=== PATIENT | female | born 1995 | race Caucasian/White ===

== ENCOUNTER 2019-01-01 03:00 | Inpatient (IN) | payer MEDICAID ==
[~2019-01-01] VITALS: Ht 154.9 cm; Wt 57.1 kg
[2019-01-01 03:30] VITALS: Ht 154.9 cm; Wt 57.1 kg
[2019-01-01] MEDS ORDERED: BUTORPHANOL 2 MG INJ IV PRN (03:30)
[2019-01-01] MEDS ORDERED: MISOPROSTOL 200 MCG TAB PR PRN ×2 (03:30→10:30)
[2019-01-01] MEDS ORDERED: METHYLERGONOVINE 0.2 MG INJ IM PRN ×2 (03:30→10:30)
[2019-01-01] MEDS ORDERED: OXYTOCIN 30 UNITS/LR 500 ML IV PRN ×2 (03:30→10:30)
[2019-01-01] MEDS ORDERED: CARBOPROST 250 MCG INJ IM PRN ×2 (03:30→10:30)
[2019-01-01] MEDS ORDERED: OXYTOCIN 30 UNITS/LR 500 ML IV SCH ×3 (03:30→10:07)
[2019-01-01] MEDS ORDERED: LIDOCAINE 1% (MPF) 30 ML INJ INJ PRN (03:30)
[2019-01-01 03:31] VITALS: BP 119/81; PULSE 62; RESP 18
[2019-01-01] MEDS: LACTATED RINGER'S 1,000 ML IV SCH ×2 (03:42→04:56)
[2019-01-01] MEDS ORDERED: FENTAnyl 2MCG/ML-ROPIV 0.2% 100 ML ONE (04:41)
--- NOTE | 2019-01-01 04:54 | PREAC ---
Date/Time of Note Date/Time of Note DATE: 01/01/19 TIME: 04:52 Anesthesia Eval and Record Evaluation Time Pre-Procedure Interview DATE: 01/01/19 TIME: 04:15 Age 23 Sex female NPO: 8 hrs Preoperative diagnosis iup @ 38.5 wks., , labor Planned procedure coreen Past Medical History Past Medical History: Includes Cardio: Other (h/o CHD, s/p repair) : : (1), Para: (0), Gestational age: (38.5 wks.) Surgery & Anesthesia Issues No known issue Meds Anticoagulation: No Beta Ely within 24 hr: No Reason Beta Ely not given: Pt. not on B-Ely Current Medications Lactated Ringer's 1,000 ml @ 125 mls/hr Q8H IV Last administered on 01/01/19at 03:42; Admin Dose 125 MLS/HR; Start 01/01/19 at 03:28 Butorphanol Tartrate (Stadol) 2 mg Q2H PRN IV .PAIN SCALE 6-10; Start 01/01/19 at 03:30 Lidocaine (Xylocaine 1% (Mpf)) 30 ml ONCE PRN INJ .EPISIOTOMY; Start 01/01/19 at 03:30 Oxytocin/Lactated Ringer's 500 ml @ 500 mls/hr ONCE POST IV ; Start 01/01/19 at 03:30 Oxytocin/Lactated Ringer's 500 ml @ 125 mls/hr POST IV ; Start 01/01/19 at 03:30 Oxytocin/Lactated Ringer's 500 ml @ 0 mls/hr ONCE PRN IV .VAGINAL BLEEDING; Start 01/01/19 at 03:30 Methylergonovine Maleate (Methergine) 0.2 mg ONCE PRN IM .VAGINAL BLEEDING; Start 01/01/19 at 03:30 Carboprost Tromethamine (Hemabate) 250 mcg ONCE PRN IM .VAGINAL BLEEDING; Start 01/01/19 at 03:30 Misoprostol (Cytotec) 1,000 mcg ONCE PRN VT .VAGINAL BLEEDING; Start 01/01/19 at 03:30 Meds reviewed: Yes Allergies Coded Allergies: No Known Allergy (Unverified , 01/01/19) Allergies Reviewed: Yes Labs/Studies Labs Reviewed: Reviewed by anesthesiologist Result Diagram: 01/01/19 0335 Laboratory Tests 01/01/19 03:35 Blood Bank Test 01/01/19 03:35 Antibody Screen NEGATIVE Blood Type O POSITIVE Rh Immune Globulin Candidate NO test: Positive Studies: ECG (n/a), CXR (n/a) Pre-procedure Exam Last vitals Vital Signs Date Temp Pulse Resp B/P (MAP) Pulse Ox O2 O2 Flow FiO2 Time Delivery Rate 01/01/19 98.3 62 18 119/81 Room Air 03:31 (94) Airway: Adequate mouth opening, Adequate thyromental dist Mallampati: Mallampati II Teeth: Normal Lung: Normal Heart: Normal ASA Physical Status ASA physical status: 2 Emergency: E Planned Anesthetic Neuraxial: Epidural Planned Pain Management Epidural, Local by surgeon Pre-operative Attestations Prior to commencing anesthesia and surgery, the patient was re-evaluated, there was verification of: *The patient's identity *The results of appropriate recent lab work and preoperative vital signs *The above evaluation not changing prior to induction *Anesthetic plan, risk benefits, alternative and complications discussed with patient/family; questions answered; patient/family understands, accepts and wishes to proceed. [employer] used EVETTE SILVER MD January 01, 2019 04:54
[2019-01-01] MEDS ORDERED: ONDANSETRON 4 MG INJ IV PRN ×4 (05:00→10:30)
[2019-01-01] MEDS ORDERED: FENTAnyl 2MCG/ML-ROPIV 0.2% 100 ML BAG EPI SCH (05:00)
[2019-01-01] MEDS ORDERED: NALOXONE (0.4 MG/ML) INJ IV PRN (05:00)
--- NOTE | 2019-01-01 10:06 | HP ---
Date/Time of Note Date/Time of Note DATE: 01/01/19 TIME: 10:01 OB - History Hx of Present Free Text/Dictation 23-year-old 1 para 0 at 38 weeks and 3 days of gestation with estimated date of delivery January 08, 2019 She presents in active labor with regular contractions Patient reports leaking fluid since 2 AM Patient reports positive movement and denies vaginal bleeding GBS status is negative Estimated Due Date: Jan 08, 2019 : 1 Para: 0 Care: Good Care Past Family/Social History * Past Medical, Surgical, Family and Obstetric Histories reviewed from chart. OB Admission Exam Vital Signs Vital Signs Vital Signs Date Temp Pulse Resp B/P (MAP) Pulse Ox O2 O2 Flow FiO2 Time Delivery Rate 01/01/19 98.3 62 18 119/81 Room Air 03:31 (94) Physical Exam HEENT: WNL Heart: Rhythm Normal Lungs: Clear, Equal Abdomen: WNL Extremities: Normal Reflexes: Normal Cervical Dilatation: 4cm Effacement: 100% Station: -2 Membranes: Ruptured Amniotic Fluid: Clear Heart Rate: 140's Accelerations: Accelerations Present Decelerations: No Decelerations Varibility: Moderate Contractions on Admission: < 5 Minutes Apart Intensity: Moderate Last 72 hours Lab Results CBC & BMP 01/01/19 03:35 OB Assessment/Plan Reason for admission: active labor Plan: Expectant Management Other plan: Admit to labor and delivery Pain meds as needed Copies To: CC: VINCENT SCHULTE MD ; ERIK RIVAS MD January 01, 2019 10:06
[2019-01-01] MEDS: LACTATED RINGER'S 1,000 ML IV* SCH ×2 (10:07→18:07)
--- NOTE | 2019-01-01 10:15 | LDN ---
Date/Time of Note Date/Time of Note DATE: 01/01/19 TIME: 10:13 Delivery Summary Weeks of Gestation Term gestation Placenta Delivered: Spontaneously Meconium: none Episiotomy: Yes Laceration repair: Medial episiotomy repaired with 2-0 Vicryl suture Anesthesia type: Epidural Estimated blood loss: 200 Sponge & Needle done & correct: Yes All needle counts correct: Yes Any foreign bodies felt in the: No Delivery Information Sex Infant Sex: female Apgars 1 Minute: 9 5 Minute: 9 Suctioning Nose & mouth suctioned at judith: Yes Delee suction performed: No Umbilical Cord Umbilical cord with: 3 Vessels Cord presentations: no nuchal cord Cord Blood was obtained: Yes Mother & Baby Disposition Disposition Baby's weight 7 pounds/ 3175 g Mom & Baby to Maternity; Good: Yes Baby to NICU: No Copies To: CC: VINCENT SCHULTE MD ; ERIK RIVAS MD January 01, 2019 10:15
[2019-01-01] MEDS ORDERED: OXYCODONE/ACETAMINOPHEN (5/325) TAB PO PRN ×2 (10:30)
[2019-01-01] MEDS ORDERED: CEFAZOLIN 1 GM/50 ML (PMX) 50 ML IVPB SCH (10:30)
[2019-01-01] MEDS ORDERED: WITCH HAZEL/GLYCERIN PAD PR PRN (10:30)
[2019-01-01] MEDS ORDERED: BISACODYL 10 MG SUPP PR PRN (10:30)
[2019-01-01] MEDS ORDERED: ACETAMINOPHEN 325 MG TAB PO PRN ×2 (10:30)
[2019-01-01] MEDS ORDERED: DIBUCAINE 1% 30 GM OINT TOP PRN (10:30)
[2019-01-01] MEDS ORDERED: IBUPROFEN 600 MG TAB NGT PRN (10:30)
[2019-01-01] MEDS ORDERED: BENZOCAINE 20% 56 ML SPRAY TOP PRN (10:30)
[2019-01-01] MEDS ORDERED: morphine 2 MG INJ IV PRN (10:30)
[2019-01-01] MEDS ORDERED: MAGNESIUM HYDROXIDE 30ML CUP PO PRN ×2 (10:30)
[2019-01-01] MEDS ORDERED: SENNA/DOCUSATE NA (8.6MG/50MG) TAB PO PRN ×2 (10:30)
[2019-01-01 10:45] VITALS: BP 126/80; PULSE 64; RESP 18
[2019-01-01 12:00] VITALS: BP 128/76; PULSE 65; RESP 19
--- NOTE | 2019-01-01 13:10 | PAC ---
Date/Time of Note Date/Time of Note DATE: 01/01/19 TIME: 13:10 Post-Anesthesia Notes Post-Anesthesia Note Last documented vital signs Vital Signs Date Temp Pulse Resp B/P (MAP) Pulse Ox O2 O2 Flow FiO2 Time Delivery Rate 01/01/19 99.1 64 18 126/80 Room Air 10:45 (95) Activity: WNL Respiratory function: WNL Cardiovascular function: WNL Mental status: Baseline Pain reasonably controlled: Yes Hydration appropriate: Yes Nausea/Vomiting absent: Yes EVETTE SILVER MD January 01, 2019 13:10
[2019-01-01] MEDS: LANOLIN HPA 1 PKT TOP PRN (13:52)
[2019-01-01] MEDS: IBUPROFEN 600 MG TAB PO PRN ×2 (13:53→21:20)
[2019-01-01 16:00] VITALS: BP 117/74; PULSE 62; RESP 18
[2019-01-01] MEDS: DOCUSATE SODIUM 100 MG CAP PO SCH (21:20)
[2019-01-01 21:30] VITALS: BP 112/59; RESP 18
[2019-01-02 00:30] VITALS: BP 110/73; PULSE 55; RESP 18
[2019-01-02] MEDS: LACTATED RINGER'S 1,000 ML IV* SCH (02:07)
[2019-01-02 04:15] VITALS: BP 115/64; PULSE 52; RESP 18
[2019-01-02] MEDS: IBUPROFEN 600 MG TAB PO PRN ×2 (05:49→11:21)
[2019-01-02 08:00] VITALS: BP 104/60; PULSE 55; RESP 18
[2019-01-02] MEDS: DOCUSATE SODIUM 100 MG CAP PO SCH ×2 (08:55→22:44)
[2019-01-02 15:45] VITALS: BP 115/67; PULSE 69; RESP 18
[2019-01-02 19:30] VITALS: BP 127/76; PULSE 72; RESP 18
[2019-01-02] MEDS: LANOLIN HPA 1 PKT TOP PRN (22:44)
[2019-01-03] MEDS: IBUPROFEN 600 MG TAB PO PRN ×2 (00:43→07:17)
[2019-01-03 04:00] VITALS: BP 112/71; PULSE 59; RESP 18
[2019-01-03 08:00] VITALS: BP 111/69; PULSE 58; RESP 18
[2019-01-03] MEDS: DOCUSATE SODIUM 100 MG CAP PO SCH (09:03)
[2019-01-03] MEDS ORDERED: DIPHTH/TET/ACEL PERTUSS (ADULT) 0.5 ML VIAL IM* ONE (13:30)
[2019-01-03 15:38] VITALS: BP 116/66; PULSE 63; RESP 18
--- NOTE | 2019-01-03 18:47 | DS ---
Date/Time of Note Date/Time of Note DATE: 01/03/19 TIME: 18:46 Obstetrical Discharge Record Final Diagnosis Final Diagnosis: Term delivered Vaginal Delivery Obstetrical Delivery: Spontaneous Condition on Discharge Physical Assessment Voiding: Yes Bowel Movement: Yes Breast: Soft, non-tender, Filling Fundus: Firm Calf Tenderness: No Patient Condition: Stable VINCENT SCHULTE MD January 03, 2019 18:47
--- NOTE | 2019-01-04 21:12 | DELSUM ---
Delivery Summary A-C Datetime Report Generated by CPN: 01/04/2019 21:11 DELIVERY PERSONNEL Geodetic Engineer: Jay, Prema MATERNAL INFORMATION Delivery Anesthesia: Epidural Medications in Delivery: LR WITH 30 UNITS OF PITOCIN Delivery QBL (ml): 200 Placenta Cultured: No Maternal Complications: Other Other Maternal Complications: HEART SURGERY AT AGE 3-[facility] LABOR SUMMARY EDC: 01/12/2019 00:00 No. Babies in Womb: 1 Attempted: No Labor Anesthesia: Epidural LABOR INFORMATION Reason for Induction: Not Applicable Onset of Labor: 01/01/2019 02:00 Complete Dilatation: 01/01/2019 07:44 Oxytocin: N/A Group B Beta Strep: Negative Antibiotics # of Doses: 0 Steroids Given: None Reason Steroids Not Administered: Not Applicable MEMBRANES Membranes Rupture Method: Spontaneous Rupture of Membranes: 01/01/2019 02:00 Length of Rupture (hr): 6.25 Amniotic Fluid Color: Clear Amniotic Fluid Amount: Large Amniotic Fluid Odor: Normal STAGES OF LABOR Stage 1 hr: 5 Stage 1 min: 44 Stage 2 hr: 0 Stage 2 min: 31 Stage 3 hr: 0 Stage 3 min: 3 Total Time in Labor hr: 6 Total Time in Labor min: 18 VAGINAL DELIVERY Episiotomy: Median Laceration Extension: Second Degree Laceration Type: None Laceration Repair: Yes Initial Vag Sponge Count: 10 Final Vag Sponge Count: 10 Initial Vag Sharps Count: 1 Final Vag Sharps Count: 3 Sponge Count Correct: Yes Sharps Count Correct: Yes BABY A INFORMATION Delivery Date/Time: 01/01/2019 08:15 Method of Delivery: Vaginal Born in Route : No : N/A Forceps: N/A Vacuum Extraction: N/A Shoulder Dystocia : N/A SHOULDER DYSTOCIA BABY A Infant Delivery Date/Time: 01/01/2019 08:15 PRESENTATION/POSITION BABY A Presentation: Cephalic Cephalic Presentation: Vertex Vertex Position: Left Occipital Anterior Breech Presentation: N/A PLACENTA INFORMATION BABY A Placenta Delivery Time : 01/01/2019 08:18 Placenta Method of Delivery: Expressed Placenta Status: Delivered SCORES BABY A Heart Rate 1 min: >100 bpm Resp Effort 1 min: Good Cry Reflex Irritability 1 min: Cough/Sneeze/Pulls Away Muscle Tone 1 min: Active Motion Color 1 min: Body Breese, Extremit Blue Resuscitation Effort 1 min: Tactile Stimulation SCORE 1 MIN: 9 Heart Rate 5 min: >100 bpm Resp Effort 5 min: Good Cry Reflex Irritability 5 min: Cough/Sneeze/Pulls Away Muscle Tone 5 min: Active Motion Color 5 min: Body Breese, Extremit Blue Resuscitation Effort 5 min: Tactile Stimulation SCORE 5 MIN: 9 INFORMATION BABY A Gestational Age at Delivery: 38.3 Gestational Status: Early Term- 37- 38.6 Weeks Infant Outcome : Liveborn Infant Condition : Stable Infant Sex: Female IDENTIFICATION/MEDS BABY A ID Band Number: [id number] ID Band Location: Right Leg; Left Arm Sensor Applied: Yes Sensor Number: [id number] Sensor Location : Cord Clamp Vitamin K Given : Aquamephyton 0.5 mg IM Erythromycin Given: Given Both Eyes WEIGHT/LENGTH BABY A Infant Birthweight (gm): 3175 Infant Weight (lb): 7 Weight (oz): 0 Length (in): 19.50 Infant Length (cm): 49.53 CORD INFORMATION BABY A No. Cord Vessels: 3 Nuchal Cord : N/A Cord Blood Taken: Yes Infant Suction: Mouth; Nose ASSESSMENT BABY A Infant Complications: None Physical Findings at Delivery: Within Normal Limits Respirations: Appears Normal Tennis Instructor/ALS Called : No Infant Care By: Beth Transferred To: Remains with Mother
== END 2019-01-03 20:10 | disposition home or self-care (01) | DRG 807 ==
LOC: OBT 03:00 → L-D 03:00 → OBT 03:22 → L-D 03:22 → PP1 10:42
PROVIDERS: ADMIT Obstetrics & Gynecology; ATTEND Obstetrics & Gynecology
PROC: 10E0XZZ Delivery of Products of Conception, External Approach (ICD-10-PCS; principal; 2019-01-01)
PROC: 0W8NXZZ Division of Female Perineum, External Approach (ICD-10-PCS; 2019-01-01)
DX: O80 Encounter for full-term uncomplicated delivery (principal); Z37.0 Single live birth; Z3A.38 38 weeks gestation of pregnancy; Z23 Encounter for immunization
CPT/HCPCS: 62322; 85025; 85610; 85730; 86592; 86850; 86900; 86901; 90715; G0463; J2590; J3010; J7120